=== PATIENT | male | born 1935 | race Caucasian/White ===

== ENCOUNTER → 2020-05-21 09:50 | Outpatient (CLI) | payer MEDICARE, SELFPAY ==
[2020-05-22 13:56] LABS: COVID19 Sendout Not Detected (Not Detect)
== END ==
PROVIDERS: Visit Provider Physician Assistant
DX: Z01.812 Encounter for preprocedural laboratory examination (principal)
CPT/HCPCS: 87635

== ENCOUNTER 2020-05-24 10:50 | Day surgery (SDC) | payer MEDICARE, SELFPAY ==
[2020-05-22 08:00] VITALS: BMI 25.5
[2020-05-24] VITALS (12 sets, daily range): BP systolic 86–156; BP diastolic 55–88; PULSE 67–83; RESP 9–20; TEMP 36.2–37.3; O2SAT 90–97; BMI 25.4
--- NOTE | 2020-05-24 | DI.RAD.S_ITS ---
PROCEDURE: XR FOOT LT MIN 3V INDICATIONS: FLAT FOOT REPAIR TECHNIQUE: For views of the foot were acquired. COMPARISON: None. FINDINGS: Bones: Digital acquisition image during and at completion of a podiatry operative procedure for pes planus repair.. Soft tissues: Normal. IMPRESSION: Fusion plate and screws in place, with table calcaneus fusion and also talonavicular fusion procedure. Dictated by: Jose Lynch M.D. on 05/24/2020 at 16:32 Approved by: Jose Lynch M.D. on 05/24/2020 at 16:34
[2020-05-24] MEDS: LACTATED RINGERS 1,000 ML 100 ML IV ×2 (11:15→15:46)
--- NOTE | 2020-05-24 12:25 | SUR.PREOP ---
Block start time [] . Monitoring initiated and maintained throughout procedure. Oxygen and medications given per anesthesiologist instructions. Patient remained stable throughout procedure, no adverse reactions noted. Block end time [].
[2020-05-24] MEDS: fentaNYL 100 MCG/2 ML INJ 50 MCG IV (12:30)
--- NOTE | 2020-05-24 12:39 | PM.PREOP ---
Pre-operative Note COVID-19 COVID-19 status: Negative Result date/Date tested (Pos, Neg/Pending): 05/21/20 Interval Note History & Physical reviewed/Exam performed by Physician: Yes Changes to H&P: No
[2020-05-24] MEDS: MIDAZOLAM 2 MG/2 ML VIAL IV (12:42)
[2020-05-24] MEDS: CEFAZOLIN 2 GM/100 ML FROZ.PIGGY IV (13:00)
--- NOTE | 2020-05-24 13:38 | SUR.OPER ---
Supine on padded OR bed, head on pillow, arms secured on padded arm boards at <90 degrees abduction, legs uncrossed, safety belt at thigh, tape over blanket over lower right leg, left leg gel bump under hip, leg on blankets and draped free.
[2020-05-24] MEDS: BUPIVACAINE 0.25% W/ EPI 30 ML VIAL INJ (13:45)
--- NOTE | 2020-05-24 16:23 | SUR.PHASEI ---
Patient somnolent with oral airway in. Left Foot: Drsg CDI. Capre refill , 2 seconds. Color: pink. Popliteal pulse +2.
--- NOTE | 2020-05-24 16:33 | SUR.PHASEI ---
Patient unable to move left toes 2nd to block. Denies pain.
--- NOTE | 2020-05-24 17:49 | SUR.PHASEII ---
Discharge instructions reviewed with patient and . Patient voided prior to departure. Denied pain. Right foot remains numb. Patient was able to transfer to chair and toilet with minimal assist. confident in resuming care of .
--- NOTE | 2020-05-24 17:52 | PM.OP.1 ---
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 He has severe talonavicular arthritis. Failed conservative treatment with bracing shoe modification and anti-inflammatories activity modifications and injections. He has desired surgical correction. The risks and benefits of the procedure have been discussed with the patient even opportunity to ask questions. The risks of surgery include but are not limited to infection, malunion, nonunion, persistence of pain, damage to nerves and blood vessels, posttraumatic arthritis, DVT, PE, cardiopulmonary complications and . The patient expressed a thorough understanding of the risks and benefits of surgery and has elected to proceed. Consent was signed in the office. 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 Closure Type: primary Specimen(s): none sent Applied: implant(s) (Arthrex 6.7 cannulated screws x 3, Arthrex 2 hole peanut plate and screws) Estimated Blood Loss (mL): 25 Blood products transfused: none Tourniquet time (min): 120 Procedure in detail: The patient was seen in the preoperative area the site of surgery was marked informed consent confirmed. Patient was then placed into the block room by the anesthesia team and peripheral nerve block was placed for postoperative pain control. Patient was then brought back into the operating room and placed supine on the operative table. General anesthesia was administered. A ipsilateral thigh bump was placed. Well-padded thigh tourniquet was placed. An SCD was placed on the contralateral lower extremity. All bony prominences well padded. The operative extremity was prepped and draped in standard sterile fashion. A formal time-out procedure was performed confirming the patient's side and site of surgery administration of appropriate preoperative antibiotics. Implants were in the room accounted for. All were in agreement. Attention was turned to the left foot. Exam undre anesthesia was performed. The patient's ankle was taken through range of motion in knee extension knee flexion found to achieve no more than 5? of dorsiflexion in either. Therefore he was indicated for a tendo Achilles lengthening. Tendo Achilles lengthening: The posterior aspect of the leg centered over the Achilles tendon I made 3 stab incisions proximal, mid and distal for a Person style tendo-Achilles lengthening. The most proximal and distal incisions the cup 50% of the Achilles tendon from midline to medial incision 50% of from the midline to lateral. Then we stretch the Achilles tendon to we had a good 20? of ankle dorsiflexion with an audible stretched noted of the Achilles tendon. Talar navicular and talocalcaneal fusion: Incision was made from the tip of the calcaneus to the base of the 4th metatarsal. Dissection was carried to the skin and subcutaneous tissue. The extensor digitorum brevis was released proximally with and suppressive dissection was then performed along the lateral border of the calcaneus and talus visualizing the posterior facet and sinus tarsi. The calcaneal cuboid joint was not violated. Once we completed our periosteal dissection removed what was left of the articular surface of the subtalar joint. This was eburnated. We removed subchondral bone from the posterior middle anterior facets of the calcaneus. In the lateral aspect of the talonavicular joint. This was done down to good cancellous bleeding bone on all surfaces. I then used the bur to complete the preparation followed by irrigation and then the bone was drilled with a 2 0 drill bit and then a osteotome was used to fish scale it. Again the joint preparation was taken all the way medially to visualize the FHL tendon. Next the dorsomedial approach to the talonavicular joint was undertaken. This was drawn out under fluoroscopic guidance centered on the talonavicular joint. We dissected through the skin subcutaneous tissues down to the talonavicular joint through the interval between the tibialis anterior and EHL tendon. The neurovascular bundle was swept laterally with the EHL tendon. With subperiosteal dissected around the talonavicular joint and all osteophytes removed. This was extremely tight arthritic joint with eburnated bone and a virtually no cartilage left. We distracted the joint using the Steinmann pin retractors. We removed what was left of the articular surface and took care to maintain the contour of the talonavicular bone. Used the bur and then the drill and the osteotome for fish scaling in this same fashion. Good cancellous exposure was obtained. Cysts were bone grafted with the 15 cc of cortical cancellous allograft. This was placed at the talonavicular joint and the subtalar joint. Then the subtalar joint and the navicular joints were provisionally pinned and checked on fluoroscopy obtaining excellent reduction and compression. The foot was in a nice plantar grade position. Then placed 2 percutaneous screws across the subtalar joint from a posterior inferior aspect of the calcaneus and into the talus. These were 6.7 Arthrex cannulated screws 90 and 95 mm. For fixation of the talonavicular joint we placed a percutaneous 6.7 cannulated screw from the Arthrex set from plantar medial of the navicular into the talus. Next a 4.5 cannulated screw was a attempted from medial dorsal into the talus with this was found to exit to medially and did not get good bite. Therefore this was removed and instead a 2 hole Arthrex peanut plate was used on the lateral aspect of the talonavicular joint dorsally and obtained excellent compression. This was locked distally and then a nonlocking compression screw was used proximally for additional compression. Final fluoroscopic x-rays were obtained in AP oblique and lateral planes demonstrating excellent fixation and hardware placement. Sinus tarsi was then packed with bone graft. Closure was completed with a 2 O Vicryl followed by subcutaneous tissues with 4 0 Monocryl and the skin with 3 O nylon. A sterile bulky dressing and posterior splint were applied. An additional 20 cc of local anesthetic 0.25% Marcaine with epinephrine was injected for local anesthesia. Patient was then transported to recovery room in good condition. I performed the entire procedure with assistance of Marco SHARP and the physician assistant attorney general helped with skin closure. Presence of a physician assistant attorney general was integral to the procedure and aided in the positioning reduction placement of hardware and closure. Complications: none Post-operative Condition: stable Disposition: PACU Plan for aftercare: Nonweightbearing on operative extremity. Elevate above heart level. Follow-up in 1-2 weeks in clinic. Will be minimally 8 weeks nonweightbearing the progressive weight-bearing. Use aspirin for DVT prophylaxis. Oxycodone for pain control.
== END 2020-05-24 17:48 | disposition home or self-care (01) ==
PROVIDERS: PCP Family Medicine; Referring Provider Orthopaedic Surgery Foot and Ankle Surgery; Visit Provider Orthopaedic Surgery Foot and Ankle Surgery
PROC: (CPT 27870; principal; 2020-05-24 12:15)
DX: M19.072 Primary osteoarthritis, left ankle and foot (principal); M24.572 Contracture, left ankle; I10 Essential (primary) hypertension
CPT/HCPCS: 28715; 27685; 64450; 73630; 76000; J0690; J1100; J2250; J2405; J2704; J3010

== ENCOUNTER → 2021-03-17 09:49 | Outpatient (CLI) | payer MEDICARE, SELFPAY | PROVIDERS: PCP Family Medicine; Referring Provider Emergency Medicine; Visit Provider Family Medicine | DX: S61.112A Laceration without foreign body of left thumb with damage to nail, initial encounter (principal); R60.0 Localized edema | CPT/HCPCS: 11042; 99204; 99213 ==

== ENCOUNTER → 2021-03-24 11:23 | Outpatient (CLI) | payer MEDICARE, SELFPAY | PROVIDERS: PCP Family Medicine; Referring Provider Family Medicine; Visit Provider Family Medicine | DX: S61.012A Laceration without foreign body of left thumb without damage to nail, initial encounter (principal); R60.0 Localized edema; Z79.2 Long term (current) use of antibiotics | CPT/HCPCS: 11042 ==

== ENCOUNTER → 2021-04-01 09:19 | Outpatient (CLI) | payer MEDICARE, SELFPAY | PROVIDERS: PCP Family Medicine; Referring Provider Family Medicine; Visit Provider Family Medicine | DX: S61.012A Laceration without foreign body of left thumb without damage to nail, initial encounter (principal); R60.0 Localized edema | CPT/HCPCS: 11042 ==

== ENCOUNTER → 2021-04-07 09:17 | Outpatient (CLI) | payer MEDICARE, SELFPAY | PROVIDERS: PCP Family Medicine; Referring Provider Family Medicine; Visit Provider Family Medicine | DX: S61.112A Laceration without foreign body of left thumb with damage to nail, initial encounter (principal) | CPT/HCPCS: 15275; Q4110 ==

== ENCOUNTER → 2021-04-14 09:20 | Outpatient (CLI) | payer MEDICARE, SELFPAY | PROVIDERS: PCP Family Medicine; Referring Provider Family Medicine; Visit Provider Family Medicine | DX: S61.012A Laceration without foreign body of left thumb without damage to nail, initial encounter (principal) | CPT/HCPCS: 11042 ==

== ENCOUNTER → 2021-04-21 09:43 | Outpatient (CLI) | payer MEDICARE, SELFPAY | PROVIDERS: PCP Family Medicine; Referring Provider Family Medicine; Visit Provider Family Medicine | DX: S61.002A Unspecified open wound of left thumb without damage to nail, initial encounter (principal) | CPT/HCPCS: 99213 ==

== ENCOUNTER → 2021-04-29 09:27 | Outpatient (CLI) | payer MEDICARE, SELFPAY | PROVIDERS: PCP Family Medicine; Referring Provider Family Medicine; Visit Provider Family Medicine | DX: S61.002A Unspecified open wound of left thumb without damage to nail, initial encounter (principal) | CPT/HCPCS: 11042 ==

== ENCOUNTER → 2021-05-06 11:03 | Outpatient (CLI) | payer MEDICARE, SELFPAY | PROVIDERS: PCP Family Medicine; Referring Provider Family Medicine; Visit Provider Family Medicine | DX: S61.112D Laceration without foreign body of left thumb with damage to nail, subsequent encounter (principal) | CPT/HCPCS: 99212; 99213 ==